=== PATIENT | male | born 1975 | race Caucasian/White ===

== ENCOUNTER → 2017-05-18 | Outpatient (CLI) | payer MEDICAID ==
--- NOTE | 2017-05-18 10:34 | RADRPT ---
EXAM DATE/TIME: 05/18/2017 10:23 [place] COMPARISON: No previous studies available for comparison. INDICATIONS : Shortness of breath. MEDICAL HISTORY : Hypertension. Diabetes mellitus type II. Smoker. SURGICAL HISTORY : IVC filter placement. ENCOUNTER: Initial ACUITY: >1 year PAIN SCORE: 0/10 LOCATION: Bilateral chest FINDINGS: PA and lateral views of the chest demonstrate the lungs to be symmetrically aerated without evidence of mass, infiltrate or effusion. The cardiomediastinal contours are unremarkable. Osseous structure s are intact. CONCLUSION: No acute disease. Trent Alfaro MD FACR on May 18, 2017 at 10:32 Board Certified Radiologist. This report was verified electronically.
--- NOTE | 2017-05-20 09:30 | RSPPFT ---
DATE OF PROCEDURE: 05/18/17 COMMENTS: Spirometry with FVC of 3.0, FEV1 of 2.7, FEV1/FVC ratio at 74%. Slow vital capacity is 45% of predicted. TLC is 59%. Diffusion capacity was not performed. Room air arterial blood gases show pH of 7.44, PCO2 of 33, PO2 of 109. IMPRESSION: 1. Mild airways obstruction. 2. Non-significant response to acutely inhaled bronchodilator. 3. Moderate airways restriction. 4. Adequate oxygenation and alveolar ventilation.
== END ==
LOC: HRSP 08:55
PROVIDERS: ATTEND Internal Medicine Sleep Medicine
DX: R06.89 Other abnormalities of breathing (principal)
CPT/HCPCS: 36600; 71046; 82805; 94060; 94726; 94729